=== PATIENT | female | born 2000 | race Caucasian/White ===

== ENCOUNTER 2018-04-17 12:52 | Day surgery (SDC) | payer BC ==
[~2018-04-17] VITALS: Ht 166.1 cm; Wt 88.9 kg
[~2018-04-17 12:52] MED LIST: CHEWABLE-VITE1 EACH PO; DEPO-PROVER150 MG/ML IM; IMITREX100 MG PO; NAPROSYN500 MG PO; PAMELOR10 MG PO; REGLAN10 MG PO; TESSALON200 MG PO; TOPAMAX50 MG PO; TRIAMCINOLONE A15 G1 TP
[2018-04-17 18:50] VITALS: BP 131/67
[2018-04-17 19:30] VITALS: BP 133/62
== END 2018-04-17 19:35 | disposition home or self-care (01) ==
LOC: SDC 12:52
PROVIDERS: Podiatrist Foot & Ankle Surgery
DX: M76.71 Peroneal tendinitis, right leg (principal); M66.174 Rupture of synovium, right foot; G58.8 Other specified mononeuropathies; S93.01XA Subluxation of right ankle joint, initial encounter; I51.9 Heart disease, unspecified; Z82.49 Family history of ischemic heart disease and other diseases of the circulatory system; Z82.61 Family history of arthritis; Z83.3 Family history of diabetes mellitus; Z84.1 Family history of disorders of kidney and ureter; Z88.0 Allergy status to penicillin
CPT/HCPCS: 73600; 76000; 81025; 88304; C1713; J0690; J1100; J1885; J2250; J2405; J2710; J2795; J3010; J7643